=== PATIENT | male | born 1965 | race Caucasian/White ===

== ENCOUNTER 2017-10-30 21:43 | Emergency (ER) | payer OTHER ==
[~2017-10-30] VITALS: Ht 188 cm; Wt 132.8 kg
[2017-10-31 00:46] LABS: AMPHETAMINE NEGATIVE (500 ng/mL); BARBITURATES NEGATIVE (200 ng/mL); BENZODIAZEPINES NEGATIVE (150 ng/mL); BUPRENORPHINE NEGATIVE (10 ng/mL); COCAINE NEGATIVE (150 ng/mL); METHADONE NEGATIVE (200 ng/mL); METHAMPHETAMINE NEGATIVE (500 ng/mL); OPIATES (MORPHINE) NEGATIVE (100 ng/mL); OXYCODONE NEGATIVE (100 ng/mL); PHENCYCLIDINE NEGATIVE (25 ng/mL); PROPOXYPHENE NEGATIVE (300 ng/mL); THC CANNABINOIDS NEGATIVE (50 ng/mL); TRICYCLIC ANTIDEPRESSANTS NEGATIVE (300 ng/mL)
[2017-10-31] MEDS ORDERED: SKELAXIN800 MG PO (02:24)
[2017-10-31] MEDS ORDERED: MOTRIN800 MG PO (02:24)
[2017-10-31 02:36] VITALS: BP 120/88
== END 2017-10-31 02:37 | disposition home or self-care (01) ==
LOC: EME 21:43
PROVIDERS: Nurse Practitioner Family
DX: T22.211A Burn of second degree of right forearm, initial encounter (principal); M54.6 Pain in thoracic spine; M54.2 Cervicalgia; V64.5XXA Driver of heavy transport vehicle injured in collision with heavy transport vehicle or bus in traffic accident, initial encounter; Y92.411 Interstate highway as the place of occurrence of the external cause; G47.30 Sleep apnea, unspecified; Z88.8 Allergy status to other drugs, medicaments and biological substances
CPT/HCPCS: 71250; 72040; 72070; 72125; 99281; 99284; G0480